=== PATIENT | female | born 1990 | race Caucasian/White ===

== ENCOUNTER 2017-04-27 20:34 | Inpatient (IN) ==
[2017-04-27] MEDS ORDERED: NS 1,000 ML ONE (20:39)
[2017-04-27] MEDS ORDERED: NS 1,000 ML IV ONE ×2 (20:39→20:55)
[2017-04-27 20:53] LABS: BE -16.2 mmoll (-3.0-3.0); BLOOD TYPE ARTERIAL; DRAW SITE L FEMORAL; METHB 1.2 % (0.0-1.5); O2(CT) 19.5 mL/dL (15.0-23.0); PO2(98.6) 314 mmHg (60-100); SAMPLE BLOOD; SAO2 100.4 % (95.0-100.0); THB 13.6 g/dL (11.5-17.4); pH(98.6) 7.27 (7.35-7.45)
[2017-04-27 20:55] LABS: MODALITY NRB; PCO2(98.6) 18 mmHg (35-45)
[2017-04-27] MEDS ORDERED: ATIVAN ONE ×2 (20:55→21:03)
[2017-04-27] MEDS ORDERED: ATIVAN IV ONE ×5 (20:55→22:36)
[2017-04-27 20:56] LABS: ALLEN TEST YES
[2017-04-27 21:19] LABS: UR AMPHETAMINES QUAL PRESUMPTIVE POSITIVE (NONE DETECT); UR BARBITUATES QUAL NONE DETECTED (NONE DETECT); UR BENZODIAZEPIN QUAL NONE DETECTED (NONE DETECT); UR CANNABINOIDS QUAL NONE DETECTED (NONE DETECT); UR COCAINE QUAL NONE DETECTED (NONE DETECT); UR MDMA QUAL NONE DETECTED (NONE DETECT); UR METHADONE QUAL NONE DETECTED (NONE DETECT); UR METHAMPHETAMINE QUAL PRESUMPTIVE POSITIVE (NONE DETECT); UR OPIATES QUAL NONE DETECTED (NONE DETECT); UR OXYCODONE QUAL NONE DETECTED (NONE DETECT); UR PCP QUAL NONE DETECTED (NONE DETECT); UR TCA QUAL NONE DETECTED (NONE DETECT)
[2017-04-27 21:21] LABS: BILIRUBIN URINE 2+ (NEGATIVE); BLOOD URINE 3+ (NEGATIVE); CLARITY CLEAR (CLEAR); COLOR YELLOW; GLUCOSE URINE NEGATIVE (NEGATIVE); LEUKOCYTES URINE 1+ (NEGATIVE); NITRITE URINE NEGATIVE (NEGATIVE); PROTEIN URINE 2+(100 mg/dL) mg/dL (NEGATIVE); UROBILINOGEN URINE 1+(1 mg/dL)
[2017-04-27 21:22] LABS: URINE CAST NONE SEEN /LPF; URINE CRYSTAL NONE SEEN /HPF; URINE CULTURE PL NEEDED? YES; URINE EPITHELIAL CELLS >10 /HPF (<10); URINE RBC <10 /HPF (<10); URINE SOURCE CATH
--- NOTE | 2017-04-27 21:26 | EKG Report ---
Test Performed on : 04/27/2017 8:48:36 PM Test Reason : UNRESPONSIVE Blood Pressure : / mmHG Vent. Rate : 156 BPM Atrial Rate : 156 BPM P-R Int : 136 ms QRS Dur : 074 ms QT Int : 306 ms P-R-T Axes : 068 -34 -05 degrees QTc Int : 493 ms Sinus tachycardia. Left axis deviation ST \T\ T wave abnormality, consider lateral ischemia Abnormal ECG No previous ECGs available Unconfirmed Result
--- NOTE | 2017-04-27 21:31 | Diag Imaging Result Doc PS360 ---
EXAM: CT HEAD W/O CONTRAST INDICATION: UNRESPONSIVE TECHNIQUE: COMPARISON: None. FINDINGS: There is no definite acute infarct given the limited sensitivity of CT versus MRI. There is no discrete intracranial mass, mass effect, or intracranial hemorrhage. The surrounding soft tissues and bony structures are essentially unremarkable. IMPRESSION: No evidence of acute intracranial pathology. Electronically signed by Eder Araujo 04/27/2017 9:28 PM
--- NOTE | 2017-04-27 21:36 | Diag Imaging Result Doc PS360 ---
EXAM: CHEST-1 VIEW INDICATION: UNRESPONSIVE TECHNIQUE: One view COMPARISON: 04/15/2015 FINDINGS: The lungs are grossly clear. There is no discrete pleural fluid collection or pneumothorax. The cardiomediastinal silhouette and central vasculature are grossly unremarkable. IMPRESSION: No evidence of acute pathology by plain radiograph. Electronically signed by Eder Araujo 04/27/2017 9:33 PM
[2017-04-27 22:23] LABS: BASO% 0.5 % (0.0-0.8); EOS% 0.2 % (0.0-10.0); HEMATOCRIT 36.1 % (37.0-47.0); HEMOGLOBIN 12.8 g/dL (12.0-16.0); IMM GRAN# 3.07 X1000 (0.0-0.04); IMM GRAN% 6.2 % (0.0-0.5); LYMPH# 3.44 X1000 (1.2-3.4); MANUAL DIFF NEEDED? YES; MCH 30.3 PG (27-31); MCHC 35.5 g/dL (33-37); MCV 85.3 FL (81-99); MONO# 2.95 X1000 (0.11-0.59); MPV 10.8 FL (7.4-10.4); NEUT% 80.1 % (42.2-75.2); PLT 400 X1000 (130-400); RBC 4.23 XMIL (4.2-5.4)
[2017-04-27 22:33] LABS: BANDS 1 % (0-1); CHLORIDE 95 mmol/L (98-107); LYMPHS 8 % (21-51); MONO 7 % (1-9); POTASSIUM 5.1 mmol/L (3.5-5.1); SODIUM 133 mmol/L (136-145)
[2017-04-27 22:34] LABS: ACETAMINOPHEN < 1.2 ug/mL (10-30); ALBUMIN 3.9 g/dL (3.5-5.0); ALKALINE PHOSPHATASE 86 U/L (32-104); BUN 43 mg/dL (8-22); COSMO 277; GOT 151 U/L (10-30); GPT 86 U/L (10-36); TOTAL PROTEIN 7.5 g/dL (6.3-8.3)
[2017-04-27] MEDS ORDERED: BENADRYL IV ONE (22:36)
[2017-04-27 22:42] LABS: CK PROFILE 7053 U/L (24-173)
[2017-04-27 22:49] LABS: AGAP 31; CALCIUM 6.9 mg/dL (8.8-10.2); TCO2 7 mmol/L (25-35)
[2017-04-27 22:59] LABS: CK INDEX 0.6 (0.0-2.5)
[2017-04-28 00:27] LABS: DIFF NEEDED? NO
[2017-04-28 01:04] LABS: GLUCOSE CSF 79 mg/dL (39-75)
[2017-04-28] MEDS ORDERED: NS 1,000 ML IV ONE (01:28)
[2017-04-28 01:39] LABS: APPEARANCE CLEAR
[2017-04-28 01:40] LABS: RBC BF 0 /cumm; WBC BF 1.5 /cumm
[2017-04-28] MEDS ORDERED: NS 1,000 ML IV SCH ×2 (06:20→10:00)
[2017-04-28] MEDS ORDERED: SODIUM BICARBONATE 8.4% IV PUSH ONE (06:44)
[2017-04-28] MEDS ORDERED: CALCIUM GLUCONATE 1 GM in NS 50 ML IV ONE (06:45)
[2017-04-28] MEDS ORDERED: CALCIUM GLUCONATE IV PUSH ONE (06:59)
[2017-04-28] MEDS: ZOSYN 3.375 GM in NS 50 ML IV SCH ×3 (07:49→21:08)
[2017-04-28] MEDS: THIAMINE 100 MG in NS 50 ML IV SCH (09:15)
[2017-04-28] MEDS: FOLIC ACID 1 MG in NS 50 ML IV SCH (09:15)
[2017-04-28 09:44] LABS: ALBUMIN 3.5 g/dL (3.5-5.0); POTASSIUM 4.1 mmol/L (3.5-5.1)
[2017-04-28 09:52] LABS: HEMATOCRIT 36.4 % (37.0-47.0); HEMOGLOBIN 12.9 g/dL (12.0-16.0); MCH 30.6 PG (27-31); MCHC 35.4 g/dL (33-37); MCV 86.3 FL (81-99); MPV 10.9 FL (7.4-10.4); PLT 166 X1000 (130-400); RBC 4.22 XMIL (4.2-5.4)
[2017-04-28] MEDS: SODIUM ACETATE 150 MEQ in D5W 1,000 ML IV SCH ×2 (09:53→20:00)
[2017-04-28 10:00] LABS: BANDS 14 % (0-1); LYMPHS 2 % (21-51); MONO 2 % (1-9)
[2017-04-28 10:01] LABS: CALCIUM 5.8 mg/dL (8.8-10.2)
[2017-04-28 10:35] LABS: URINE MICRO REVIEW NEEDED? NO; URINE SOURCE CATH
[2017-04-28 10:41] LABS: BILIRUBIN URINE NEGATIVE (NEGATIVE); BLOOD URINE LARGE (NEGATIVE); COLOR ORANGE; GLUCOSE URINE 100 mg/dL (NEGATIVE); LEUKOCYTES URINE NEGATIVE (NEGATIVE); NITRITE URINE NEGATIVE (NEGATIVE); PROTEIN URINE 300 mg/dL (NEGATIVE); SP GRAVITY URINE 1.017; TURBIDITY URINE HAZY (CLEAR); UROBILINOGEN URINE NORMAL (NORMAL)
[2017-04-28 10:42] LABS: UR EPITHELIAL CELLS <10 /HPF (<10); URINE BACTERIA 2+ /HPF; URINE WBC <10 /HPF (<10)
[2017-04-28 11:03] LABS: UR CREAT RANDOM 120.8 mg/dL (11-20); UR PROT RANDOM 557.4 mg/dL
[2017-04-28] MEDS ORDERED: CALCIUM GLUCONATE 4.65 MEQ in NS 50 ML IV ONE (13:00)
[2017-04-28] MEDS: ATIVAN IV PRN ×4 (15:00→23:56)
[2017-04-28] MEDS ORDERED: ATIVAN IV ONE ×2 (19:45→19:56)
[2017-04-28 21:44] LABS: CALCIUM 5.8 mg/dL (8.8-10.2); POTASSIUM 3.5 mmol/L (3.5-5.1)
[2017-04-28 23:03] LABS: ALLEN TEST YES; BE -6.6 mmoll (-3.0-3.0); BLOOD TYPE ARTERIAL; DRAW SITE R RADIAL; METHB 1.4 % (0.0-1.5); O2(CT) 17.7 mL/dL (15.0-23.0); PCO2(98.6) 27 mmHg (35-45); PO2(98.6) 97 mmHg (60-100); SAMPLE BLOOD; SAO2 98.9 % (95.0-100.0)
[2017-04-28 23:04] LABS: MODALITY ROOM AIR
[2017-04-28] MEDS: NS 1,000 ML IV SCH (23:56)
[2017-04-29] MEDS: ATIVAN IV PRN ×7 (01:17→21:32)
[2017-04-29] MEDS ORDERED: TUMS PO ONE (02:07)
[2017-04-29] MEDS: ZOSYN 3.375 GM in NS 50 ML IV SCH ×4 (02:12→18:08)
[2017-04-29 06:38] LABS: BASO% 0.1 % (0.0-0.8); EOS# 0.01 X1000 (0.0-0.7); HEMATOCRIT 38.1 % (37.0-47.0); HEMOGLOBIN 13.6 g/dL (12.0-16.0); IMM GRAN# 0.35 X1000 (0.0-0.04); LYMPH# 2.59 X1000 (1.2-3.4); LYMPH% 7.6 % (20.5-51.1); MANUAL DIFF NEEDED? YES; MCH 30.3 PG (27-31); MCHC 35.7 g/dL (33-37); MCV 84.9 FL (81-99); MONO# 1.43 X1000 (0.11-0.59); MONO% 4.2 % (1.7-9.3); MPV 11.9 FL (7.4-10.4); NEUT% 87.1 % (42.2-75.2); PLT 136 X1000 (130-400); RBC 4.49 XMIL (4.2-5.4)
[2017-04-29 06:53] LABS: BANDS 4 % (0-1); LYMPHS 8 % (21-51); MONO 4 % (1-9)
[2017-04-29 07:01] LABS: MAGNESIUM 2.6 mg/dL (1.5-2.7)
[2017-04-29 07:08] LABS: ALBUMIN 3.1 g/dL (3.5-5.0); POTASSIUM 3.4 mmol/L (3.5-5.1); TOTAL BILIRUBIN 0.93 mg/dL (0.20-1.00)
[2017-04-29 07:23] LABS: CK PROFILE > 20000 U/L (24-173)
[2017-04-29 07:52] LABS: CK-MB > 600.00 ng/mL (0.0-5.0)
[2017-04-29] MEDS: NS 1,000 ML IV SCH ×3 (08:04→15:52)
[2017-04-29] MEDS ORDERED: CALCIUM GLUCONATE 4.65 MEQ in NS 50 ML IV ONE (08:17)
[2017-04-29] MEDS: FOLIC ACID 1 MG in NS 50 ML IV SCH (09:08)
[2017-04-29] MEDS: THIAMINE 100 MG in NS 50 ML IV SCH (09:08)
[2017-04-29] MEDS: TUMS PO SCH ×2 (09:25→18:08)
--- NOTE | 2017-04-29 11:54 | Diag Imaging Result Doc PS360 ---
EXAM: US RENAL 2 (RETROPER) COMPLETE INDICATION: decreased renal function TECHNIQUE: COMPARISON: None. FINDINGS: The renal echotexture appears to be increased, especially on the right, which is a nonspecific indicator of medical renal disease. No discrete renal mass or hydronephrosis is identified. The right kidney measures 10.8 cm and the left kidney measures 11.4 cm in the greatest longitudinal axes. Both renal cortices measure up to 1.6 cm in thickness. There is a Sofia catheter in urinary bladder and the bladder is nondistended. Incidentally, there is layering sludge in the gallbladder lumen with no evidence of gallbladder wall thickening or pericholecystic fluid. IMPRESSION: 1.Increased renal echotexture, which is a nonspecific indicator of medical renal disease. 2.Incidental layering gallbladder sludge. Electronically signed by Eder Araujo 04/29/2017 11:51 AM
[2017-04-29] MEDS ORDERED: HALDOL IV ONE (20:54)
[2017-04-30] MEDS: HALDOL IM PRN ×5 (01:06→22:21)
[2017-04-30] MEDS: ZOSYN 3.375 GM in NS 50 ML IV SCH ×4 (02:05→22:21)
[2017-04-30] MEDS: NS 1,000 ML IV SCH ×4 (02:05→17:38)
[2017-04-30] MEDS: PROTONIX IV SCH ×2 (02:05→12:04)
[2017-04-30] MEDS: SODIUM CHLORIDE 0.9% INJ SCH ×2 (02:05→12:04)
[2017-04-30] MEDS: ATIVAN IV PRN ×2 (02:06→08:48)
[2017-04-30] MEDS: TUMS PO SCH ×3 (02:07→17:37)
[2017-04-30 06:40] LABS: ALBUMIN 2.9 g/dL (3.5-5.0); POTASSIUM 3.4 mmol/L (3.5-5.1); TOTAL BILIRUBIN 0.76 mg/dL (0.20-1.00)
[2017-04-30 07:04] LABS: CK PROFILE > 20000 U/L (24-173)
[2017-04-30 07:18] LABS: HEMATOCRIT 31.6 % (37.0-47.0); HEMOGLOBIN 11.2 g/dL (12.0-16.0); MCH 30.4 PG (27-31); MCHC 35.4 g/dL (33-37); MCV 85.9 FL (81-99); MPV 11.6 FL (7.4-10.4); RBC 3.68 XMIL (4.2-5.4)
[2017-04-30 07:26] LABS: CALCIUM 6.7 mg/dL (8.8-10.2)
[2017-04-30] MEDS ORDERED: NS 2,000 ML MISC PRN (07:27)
[2017-04-30] MEDS ORDERED: TIGHT: 0.2 ML/HR MISC PRN (07:27)
[2017-04-30] MEDS ORDERED: HEPARIN IV PRN (07:27)
[2017-04-30] MEDS: THIAMINE 100 MG in NS 50 ML IV SCH (08:05)
[2017-04-30] MEDS: FOLIC ACID 1 MG in NS 50 ML IV SCH (08:05)
[2017-04-30 10:59] LABS: HEPATITIS PROFILE ACUTE SEE COMMENTS
[2017-05-01] MEDS: TUMS PO SCH ×3 (02:08→18:38)
[2017-05-01] MEDS: PROTONIX IV SCH ×2 (03:26→13:20)
[2017-05-01] MEDS: SODIUM CHLORIDE 0.9% INJ SCH (03:26)
[2017-05-01] MEDS: ZOSYN 3.375 GM in NS 50 ML IV SCH ×4 (03:26→20:22)
[2017-05-01] MEDS: HALDOL IM PRN ×2 (03:26→07:46)
[2017-05-01] MEDS: NS 1,000 ML IV SCH ×2 (05:10→20:25)
[2017-05-01 06:39] LABS: HEMATOCRIT 30.9 % (37.0-47.0); HEMOGLOBIN 10.6 g/dL (12.0-16.0); MCH 29.9 PG (27-31); MCHC 34.3 g/dL (33-37); MPV 11.6 FL (7.4-10.4); RBC 3.55 XMIL (4.2-5.4)
[2017-05-01] MEDS ORDERED: NS 2,000 ML ONE (07:17)
[2017-05-01] MEDS ORDERED: HEPARIN ONE (07:17)
[2017-05-01 07:18] LABS: ALBUMIN 2.4 g/dL (3.5-5.0); CALCIUM 6.9 mg/dL (8.8-10.2); POTASSIUM 2.9 mmol/L (3.5-5.1); TOTAL BILIRUBIN 0.87 mg/dL (0.20-1.00); TOTAL PROTEIN 5.5 g/dL (6.3-8.3)
[2017-05-01 07:32] LABS: CK INDEX 0.5 (0.0-2.5); CK-MB 47.66 ng/mL (0.0-5.0)
[2017-05-01] MEDS: ATIVAN IV PRN (07:46)
[2017-05-01] MEDS ORDERED: NS 2,000 ML MISC PRN (08:52)
[2017-05-01] MEDS ORDERED: TIGHT: 0.2 ML/HR MISC PRN (08:52)
[2017-05-01] MEDS: FOLIC ACID 1 MG in NS 50 ML IV SCH (12:35)
[2017-05-01] MEDS: THIAMINE 100 MG in NS 50 ML IV SCH (12:35)
[2017-05-02] MEDS: PROTONIX IV SCH ×2 (00:59→13:30)
[2017-05-02] MEDS: TUMS PO SCH ×3 (00:59→17:27)
[2017-05-02] MEDS: SODIUM CHLORIDE 0.9% INJ SCH ×2 (00:59→13:30)
[2017-05-02] MEDS: ZOSYN 3.375 GM in NS 50 ML IV SCH ×4 (00:59→20:20)
[2017-05-02 05:23] LABS: HEMATOCRIT 31.8 % (37.0-47.0); HEMOGLOBIN 10.7 g/dL (12.0-16.0); MCH 30.5 PG (27-31); MCHC 33.6 g/dL (33-37); MCV 90.6 FL (81-99); MPV 11.6 FL (7.4-10.4); RBC 3.51 XMIL (4.2-5.4)
[2017-05-02 06:11] LABS: ALBUMIN 2.4 g/dL (3.5-5.0); CALCIUM 7.6 mg/dL (8.8-10.2); TOTAL BILIRUBIN 0.66 mg/dL (0.20-1.00); TOTAL PROTEIN 5.8 g/dL (6.3-8.3)
[2017-05-02 06:50] LABS: CK INDEX 0.5 (0.0-2.5); CK-MB 17.19 ng/mL (0.0-5.0)
[2017-05-02] MEDS: THIAMINE 100 MG in NS 50 ML IV SCH (08:23)
[2017-05-02] MEDS: FOLIC ACID 1 MG in NS 50 ML IV SCH (08:23)
[2017-05-02] MEDS ORDERED: POTASSIUM CHLORIDE 20% LIQUID PO ONE (08:57)
[2017-05-02] MEDS: NICODERM PATCH TD SCH (09:24)
[2017-05-02 09:27] LABS: HIV ANTIBODY SCREEN SEE COMMENTS
[2017-05-02] MEDS: MORPHINE IV PRN ×2 (15:29→20:20)
[2017-05-02] MEDS: ZOFRAN IV PRN (20:26)
[2017-05-02] MEDS: NS 1,000 ML IV SCH (20:29)
[2017-05-03] MEDS: SODIUM CHLORIDE 0.9% INJ SCH ×2 (00:57→14:44)
[2017-05-03] MEDS: PROTONIX IV SCH ×2 (00:57→14:44)
[2017-05-03] MEDS: TUMS PO SCH ×3 (01:00→17:38)
[2017-05-03] MEDS: ZOSYN 3.375 GM in NS 50 ML IV SCH ×2 (01:00→10:26)
[2017-05-03] MEDS: ZOFRAN IV PRN ×2 (03:01→08:04)
[2017-05-03 04:45] LABS: HEMOGLOBIN 10.8 g/dL (12.0-16.0); MCH 29.9 PG (27-31); MCHC 33.8 g/dL (33-37); MCV 88.6 FL (81-99); MPV 11.3 FL (7.4-10.4); RBC 3.61 XMIL (4.2-5.4)
[2017-05-03 05:02] LABS: ALBUMIN 2.5 g/dL (3.5-5.0); CALCIUM 8.4 mg/dL (8.8-10.2); POTASSIUM 3.2 mmol/L (3.5-5.1); TOTAL BILIRUBIN 0.5 mg/dL (0.20-1.00); TOTAL PROTEIN 5.6 g/dL (6.3-8.3)
[2017-05-03 05:22] LABS: CK INDEX 0.9 (0.0-2.5); CK-MB 10.55 ng/mL (0.0-5.0)
[2017-05-03] MEDS ORDERED: NS 2,000 ML MISC PRN (06:51)
[2017-05-03] MEDS ORDERED: HEPARIN IV PRN (06:51)
[2017-05-03] MEDS ORDERED: TIGHT: 0.2 ML/HR MISC PRN (06:51)
[2017-05-03] MEDS: FOLIC ACID 1 MG in NS 50 ML IV SCH (07:49)
[2017-05-03] MEDS: NICODERM PATCH TD SCH (08:04)
[2017-05-03] MEDS: THIAMINE 100 MG in NS 50 ML IV SCH (08:50)
[2017-05-03] MEDS ORDERED: NS 2,000 ML ONE (09:04)
[2017-05-03] MEDS ORDERED: HEPARIN ONE (09:05)
[2017-05-03] MEDS: ZOSYN 2.25 GM in NS 50 ML IV SCH ×2 (14:44→22:12)
[2017-05-03] MEDS: MORPHINE IV PRN ×2 (14:45→20:34)
[2017-05-03] MEDS: NS 1,000 ML IV SCH (14:48)
[2017-05-04] MEDS: PROTONIX IV SCH ×2 (01:37→13:52)
[2017-05-04] MEDS: SODIUM CHLORIDE 0.9% INJ SCH ×2 (01:37→13:52)
[2017-05-04] MEDS: TUMS PO SCH ×3 (03:07→18:43)
[2017-05-04] MEDS: NS 1,000 ML IV SCH (03:08)
[2017-05-04] MEDS: ZOSYN 2.25 GM in NS 50 ML IV SCH ×3 (06:15→22:57)
[2017-05-04] MEDS: MORPHINE IV PRN ×4 (06:36→20:45)
[2017-05-04 06:41] LABS: MANUAL DIFF NEEDED? NO
[2017-05-04 06:48] LABS: BASO% 0.3 % (0.0-0.8); EOS# 0.38 X1000 (0.0-0.7); EOS% 3.2 % (0.0-10.0); HEMATOCRIT 30.9 % (37.0-47.0); HEMOGLOBIN 10.3 g/dL (12.0-16.0); IMM GRAN% 2.6 % (0.0-0.5); LYMPH# 1.92 X1000 (1.2-3.4); LYMPH% 16.4 % (20.5-51.1); MCH 29.9 PG (27-31); MCHC 33.3 g/dL (33-37); MCV 89.6 FL (81-99); MONO# 0.87 X1000 (0.11-0.59); MONO% 7.4 % (1.7-9.3); NEUT% 70.1 % (42.2-75.2); PLT 200 X1000 (130-400); RBC 3.45 XMIL (4.2-5.4)
[2017-05-04 07:08] LABS: ALBUMIN 2.7 g/dL (3.5-5.0); CALCIUM 7.9 mg/dL (8.8-10.2); POTASSIUM 3.2 mmol/L (3.5-5.1); TOTAL BILIRUBIN 0.37 mg/dL (0.20-1.00); TOTAL PROTEIN 5.3 g/dL (6.3-8.3)
[2017-05-04] MEDS: NICODERM PATCH TD SCH (08:14)
[2017-05-04] MEDS: FOLIC ACID 1 MG in NS 50 ML IV SCH (08:16)
[2017-05-04] MEDS: THIAMINE 100 MG in NS 50 ML IV SCH (08:16)
[2017-05-04] MEDS: ATIVAN IV PRN (16:27)
[2017-05-05] MEDS: TUMS PO SCH ×4 (03:03→17:43)
[2017-05-05] MEDS: PROTONIX IV SCH ×2 (04:45→15:13)
[2017-05-05] MEDS: SODIUM CHLORIDE 0.9% INJ SCH ×2 (04:45→15:13)
[2017-05-05] MEDS: MORPHINE IV PRN ×4 (04:51→19:36)
[2017-05-05] MEDS: ZOSYN 2.25 GM in NS 50 ML IV SCH ×2 (05:10→15:13)
[2017-05-05 06:42] LABS: MANUAL DIFF NEEDED? NO
[2017-05-05 06:50] LABS: BASO% 0.4 % (0.0-0.8); EOS# 0.33 X1000 (0.0-0.7); EOS% 3.1 % (0.0-10.0); HEMATOCRIT 29.4 % (37.0-47.0); HEMOGLOBIN 9.7 g/dL (12.0-16.0); IMM GRAN# 0.24 X1000 (0.0-0.04); IMM GRAN% 2.2 % (0.0-0.5); LYMPH# 1.79 X1000 (1.2-3.4); LYMPH% 16.7 % (20.5-51.1); MCH 29.5 PG (27-31); MCV 89.4 FL (81-99); MONO# 0.96 X1000 (0.11-0.59); MONO% 8.9 % (1.7-9.3); MPV 10.6 FL (7.4-10.4); NEUT% 68.7 % (42.2-75.2); PLT 246 X1000 (130-400); RBC 3.29 XMIL (4.2-5.4)
[2017-05-05] MEDS ORDERED: HEPARIN IV PRN (06:52)
[2017-05-05] MEDS ORDERED: NS 2,000 ML MISC PRN (06:52)
[2017-05-05] MEDS ORDERED: TIGHT: 0.2 ML/HR MISC PRN (06:52)
[2017-05-05 07:21] LABS: ALBUMIN 2.8 g/dL (3.5-5.0); CALCIUM 8.6 mg/dL (8.8-10.2); POTASSIUM 3.5 mmol/L (3.5-5.1); TOTAL BILIRUBIN 0.43 mg/dL (0.20-1.00)
[2017-05-05] MEDS: FOLIC ACID 1 MG in NS 50 ML IV SCH (08:15)
[2017-05-05] MEDS: THIAMINE 100 MG in NS 50 ML IV SCH (08:15)
[2017-05-05] MEDS: NICODERM PATCH TD SCH (08:15)
[2017-05-05] MEDS: ZOFRAN IV PRN (11:19)
[2017-05-05] MEDS ORDERED: NS 2,000 ML ONE (11:21)
[2017-05-05] MEDS ORDERED: HEPARIN ONE (11:21)
[2017-05-05] MEDS: ATIVAN IV PRN ×2 (15:16→17:42)
[2017-05-05 18:23] LABS: HEPATITIS C GENOTYPE SEE COMMENTS
[2017-05-06] MEDS: TUMS PO SCH ×2 (01:48→09:47)
[2017-05-06] MEDS: SODIUM CHLORIDE 0.9% INJ SCH (06:46)
[2017-05-06] MEDS: MORPHINE IV PRN (06:46)
[2017-05-06] MEDS: PROTONIX IV SCH ×2 (06:46→14:59)
[2017-05-06 07:35] LABS: ALBUMIN 2.9 g/dL (3.5-5.0); CALCIUM 8.1 mg/dL (8.8-10.2); POTASSIUM 3.6 mmol/L (3.5-5.1)
[2017-05-06 08:45] VITALS: BP 126/83
[2017-05-06] MEDS: NICODERM PATCH TD SCH (09:47)
[2017-05-06] MEDS: FOLIC ACID 1 MG in NS 50 ML IV SCH (09:48)
[2017-05-06] MEDS: THIAMINE 100 MG in NS 50 ML IV SCH (09:48)
[2017-05-06] MEDS ORDERED: NS 2,000 ML ONE (09:57)
[2017-05-06] MEDS ORDERED: HEPARIN ONE (09:57)
[2017-05-06] MEDS ORDERED: NS 250 ML ONE (09:58)
[2017-05-06] MEDS ORDERED: NS 2,000 ML MISC PRN (10:25)
[2017-05-06] MEDS ORDERED: HEPARIN IV PRN (10:25)
[2017-05-06] MEDS ORDERED: TIGHT: 0.2 ML/HR MISC PRN (10:25)
[2017-05-06] MEDS ORDERED: FLUZONE QUAD 2017-2018 SYRINGE IM ONE (15:51)
== END 2017-05-06 16:24 | disposition home or self-care (01) ==
LOC: P.ED 20:34 → ICU 04-28 03:57 → SUATTDRO 04-28 03:57 → 3N 05-03 11:02
PROVIDERS: ATTEND Internal Medicine